=== PATIENT | female | born 1995 | race Caucasian/White ===

== ENCOUNTER → 2018-10-04 | Outpatient (CLI) | payer SELFPAY ==
[2018-10-15 11:43] LABS: HPV HC, High Risk Negative (Negative)
[2018-10-15 11:50] LABS: HPV Reflexed? NOT INDICATED
== END | disposition home or self-care (01) ==
PROVIDERS: Visit Provider Obstetrics & Gynecology
DX: Z12.4 Encounter for screening for malignant neoplasm of cervix (principal)
CPT/HCPCS: 88175; G0145

== ENCOUNTER → 2021-04-28 14:39 | Outpatient (CLI) | payer BC, MEDICAID, SELFPAY ==
[2021-04-28 15:21] LABS: Color, Urine Yellow (Yellow); Glucose, Dipstick Normal (Normal); Ketone-Dipstick 5 mg/dl (Negative); Leukocyte Esterase-Dipstick 25 /ul (Negative); Nitrite-Dipstick Negative (Negative); Occult Blood-Urine Negative /ul (Negative); Protein-Dipstick Negative (Negative); Urine Bilirubin Dipstick Negative (Negative); Urine Clarity Clear (Clear); Urine Urobilinogen Normal (Normal)
[2021-04-28 15:24] LABS: Absolute Lymphocyte Count 1.43 X10^3/uL (0.83-4.51); Absolute Neutrophil Count 5.8 X10^3/uL (2.0-7.7); Basophil# 0.02 X10^3/uL; Basophil% 0.3 % (0-1); Eosinophils% 1.3 % (0-5); Hemoglobin 13.9 g/dL (12.0-15.0); Lymphocyte # 1.43 X10^3/ul (0.83-4.51); Lymphocyte % 18.5 % (19-41); Mean Corp Hgb Conc 34.8 g/dL (32-36); Mean Corpuscular Hgb 29.7 pg (27.0-32.0); Mean Corpuscular Volume 85.5 fL (81-99); Mean Platelet Vol. 10.2 fl (6.2-12.0); Monocyte% 5.2 % (0-10); NRBC Flagged by Analyzer 0 % (0-5); Neutrophil # 5.78 X10^3/uL (2.7-7.7); Neutrophil % 74.4 % (47-70); Platelet Count 223 K/mm3 (150-450); RBC Distribution Width CV 11.8 % (11.6-14.6); RBC Distribution Width SD 36.4 fl (35.1-43.9); Red Blood Count 4.68 M/mm3 (4.2-5.4); White Blood Count 7.8 K/mm3 (4.4-11.0)
[2021-04-28 15:45] LABS: Amphetamine Urine VISTA NEGATIVE (<1000 ng/mL); Barbiturate Urine VISTA NEGATIVE (< 200 ng/mL); Benzodiazepine Urine VISTA NEGATIVE (< 200 ng/mL); Cocaine Urine VISTA NEGATIVE (< 300 ng/mL); Ecstacy Urine VISTA NEGATIVE (< 500 ng/mL); Methadone Urine VISTA NEGATIVE (< 300 ng/mL); PCP Urine VISTA NEGATIVE (< 25 ng/mL); THC Urine VISTA NEGATIVE (< 50 ng/mL); Vista UDS pH Range 5
[2021-04-28 17:51] LABS: Thyroid Stim Hormone (TSH) 4.16 uIU/mL (0.358-3.74)
[2021-04-29 08:44] LABS: HIV - WCH Non-Reactive (Nonreactive); Hepatitis B Surface Antigen Non-Reactive (Nonreactive); Hepatitis C Antibody Non-Reactive (Nonreactive); Rubella IgG Reactive (Nonreactive); Syphilis Antibodies Non-reactive
[2021-05-03 02:07] LABS: Chlamydia By Nucleic Acid AMP Negative (Negative)
[2021-05-03 13:36] LABS: Gonococcus By Nucleic Acid AMP Negative (Negative)
[2021-05-12 11:42] LABS: HPV Reflexed? NOT INDICATED
== END ==
PROVIDERS: Visit Provider Obstetrics & Gynecology
DX: Z34.81 Encounter for supervision of other normal pregnancy, first trimester (principal)
CPT/HCPCS: 36415; 80307; 81002; 84443; 85025; 86703; 86762; 86780; 86803; 87086; 87088; 87340; 87491; 87591; 88175; G0145

== ENCOUNTER 2021-05-28 14:58 | Outpatient (CLI) | payer BC, MEDICAID, SELFPAY ==
[2021-05-28 17:21] LABS: T4 Free Direct 0.85 ng/dL (0.76-1.46); Thyroid Stim Hormone (TSH) 4.06 uIU/mL (0.358-3.74)
[2021-05-31 15:07] LABS: Thyroid Peroxidase AB 96 IU/mL (0-34)
[2021-05-31 16:08] LABS: Thyroglobulin Antibody 2.6 IU/mL (0.0-0.9)
== END 2021-05-28 23:59 | disposition short-term general hospital (02) ==
LOC: WOBLAB 14:59
PROVIDERS: Visit Provider Obstetrics & Gynecology
DX: E03.9 Hypothyroidism, unspecified (principal)
CPT/HCPCS: 36415; 84439; 84443; 86376; 86800

== ENCOUNTER 2021-07-27 15:33 | Outpatient (CLI) | payer BC, MEDICAID, SELFPAY ==
[2021-07-27 16:36] LABS: T4 Free Direct 0.88 ng/dL (0.76-1.46); Thyroid Stim Hormone (TSH) 2.66 uIU/mL (0.358-3.74)
== END 2021-07-27 23:59 | disposition home or self-care (01) ==
PROVIDERS: Visit Provider Obstetrics & Gynecology
DX: Z34.82 Encounter for supervision of other normal pregnancy, second trimester (principal); E06.3 Autoimmune thyroiditis
CPT/HCPCS: 36415; 84439; 84443

== ENCOUNTER 2021-08-31 09:10 | Outpatient (CLI) | payer BC, SELFPAY ==
[2021-08-31 10:55] LABS: Hematocrit 36.2 % (37-47); Hemoglobin 12.5 g/dL (12.0-15.0); Mean Corp Hgb Conc 34.5 g/dL (32-36); Mean Corpuscular Hgb 30.3 pg (27.0-32.0); Mean Corpuscular Volume 87.7 fL (81-99); Mean Platelet Vol. 10.4 fl (6.2-12.0); Platelet Count 157 K/mm3 (150-450); RBC Distribution Width CV 12.6 % (11.6-14.6); RBC Distribution Width SD 40.4 fl (35.1-43.9); Red Blood Count 4.13 M/mm3 (4.2-5.4); White Blood Count 7.1 K/mm3 (4.4-11.0)
[2021-08-31 11:18] LABS: Glucose Challenge Gest 1H 50g 119 mg/dL (70-140); T4 Free Direct 0.89 ng/dL (0.76-1.46); Thyroid Stim Hormone (TSH) 2.22 uIU/mL (0.358-3.74)
== END 2021-08-31 23:59 | disposition home or self-care (01) ==
LOC: WOBLAB 09:10
PROVIDERS: Visit Provider Obstetrics & Gynecology
DX: Z34.82 Encounter for supervision of other normal pregnancy, second trimester (principal)
CPT/HCPCS: 36415; 82950; 84439; 84443; 85027

== ENCOUNTER → 2021-11-12 | Outpatient (CLI) | payer BC, SELFPAY | END | disposition home or self-care (01) | LOC: LABSPEC 12:18 | PROVIDERS: Visit Provider Obstetrics & Gynecology | DX: Z36.85 Encounter for antenatal screening for Streptococcus B (principal) | CPT/HCPCS: 87081 ==

== ENCOUNTER 2021-12-03 03:30 | Inpatient (IN) | payer BC, MEDICAID, SELFPAY ==
[2021-12-03] VITALS (54 sets, daily range): BP systolic 96–133; BP diastolic 55–84; PULSE 59–116; RESP 14–18; TEMP 36.2–36.9; O2SAT 95–100; BMI 26.6
[2021-12-03 03:21] LABS: ROM Internal Control Test YES-OK TO RESULT pt. (Internal QC)
[2021-12-03 03:22] LABS: ROM Patient Test POSITIVE (Negative)
[2021-12-03] MEDS: Lactated Ringers 1,000 ML 50 ML IV (03:30)
[2021-12-03 03:52] LABS: Absolute Lymphocyte Count 1.82 X10^3/uL (0.83-4.51); Absolute Neutrophil Count 6.6 X10^3/uL (2.0-7.7); Basophil# 0.03 X10^3/uL; Basophil% 0.3 % (0-1); Eosinophil# 0.06 X10^3/uL; Eosinophils% 0.7 % (0-5); Hematocrit 37.7 % (37-47); Hemoglobin 12.9 g/dL (12.0-15.0); Lymphocyte # 1.82 X10^3/ul (0.83-4.51); Lymphocyte % 19.8 % (19-41); Mean Corp Hgb Conc 34.2 g/dL (32-36); Mean Corpuscular Hgb 30.1 pg (27.0-32.0); Mean Corpuscular Volume 88.1 fL (81-99); Mean Platelet Vol. 10.6 fl (6.2-12.0); Monocyte# 0.54 X10^3/uL; Monocyte% 5.9 % (0-10); NRBC Flagged by Analyzer 0 % (0-5); Neutrophil # 6.63 X10^3/uL (2.7-7.7); Neutrophil % 72.3 % (47-70); Platelet Count 147 K/mm3 (150-450); RBC Distribution Width CV 12.9 % (11.6-14.6); Red Blood Count 4.28 M/mm3 (4.2-5.4); White Blood Count 9.2 K/mm3 (4.4-11.0)
--- NOTE | 2021-12-03 03:56 | PCM.HP.BLA ---
History and Physical Date of Admission: 12/03/21 Chief complaint: Leakage of fluid History present illness: 26-year-old at 39 weeks and 3 days with [facility]I: 12/07/2021 arrives with leakage of clear fluid. Denies headache, visual changes, chest pain, shortness of breath, nausea vomit, right upper quadrant pain. Patient states good movement. Obstetrical history: G1: 39-week male 08/2019 G2: SAB G3: Current Medications: Synthroid 50 mcg daily Past medical history: Hypothyroid Past surgical history: ACL Allergies: No known drug allergies Social history: Denies smoking, alcohol use, drug use Family history: Denies history of DVT or PE Review of systems: Besides above pertinent positives a full review of systems was performed and found to be negative Physical exam: Blood pressure 111/74 pulse 88 SPO2 98% General: Normal-appearing no acute distress HEENT: Normocephalic/atraumatic no cervical lymphadenopathy Cardiac/respiratory: No successor muscles, nonlabored breathing Abdomen: Soft, nontender, gravid Extremities: No peripheral edema normal peripheral pulses Psych: Normal affect normal demeanor nonpressured speech Labs: White blood cell count 9.2 hemoglobin 12.9 hematocrit 37.7% platelets 147. ROM positive Assessment plan: 26-year-old at 39 weeks and 3 days with SROM Admit labor and delivery CEFM GBS negative Routine orders Anesthesia to see
[2021-12-03] MEDS: LACTATED RINGERS 500 ML 999 ML IV (04:15)
[2021-12-03] MEDS: fentaNYL-bupivacaine (epidural) 100 ML BAG EPIDURAL (04:40)
[2021-12-03 04:42] LABS: HIV - WCH Non-Reactive (Nonreactive)
--- NOTE | 2021-12-03 04:58 | PCM.PN.OB ---
Subjective Subjective Patient now comfortable with epidural Objective Data Objective Data Vital Signs: Vital Signs Pulse BP Pulse Ox 79 131/77 H 99 12/03/21 04:57 12/03/21 04:57 12/03/21 04:56 Weight: 170 lb Body Mass Index (BMI) 26.6 Intake & Output: Intake and Output for Last 24 Hours 12/01/21 12/02/21 12/03/21 23:59 23:59 23:59 Intake Total 59.17 / 59.17 Balance 59.17 / 59.17 Lab / Micro Data Result Diagrams: 12/03/21 03:30 Labs: Laboratory Results - last 24 hr 12/03/21 02:55: Vag Amniotic Fld Detect POSITIVE H 12/03/21 03:30: WBC 9.2, RBC 4.28, Hgb 12.9, Hct 37.7, MCV 88.1, MCH 30.1, MCHC 34.2, RDW Std Deviation 41.0, RDW Coeff of Fran 12.9, Plt Count 147 L, MPV 10.6, Immature Gran % (Auto) 1.000 H, Neut % (Auto) 72.3 H, Lymph % (Auto) 19.8, [place] % (Auto) 5.9, Eos % (Auto) 0.7, Baso % (Auto) 0.3, Absolute Neuts (auto) 6.6, Absolute Lymphs (auto) 1.82, Nucleated RBC % 0 12/03/21 03:30: Blood Type A POSITIVE, Antibody Screen NEGATIVE 12/03/21 03:30: HIV 1&2 Antibody Non-Reactive Micro: Microbiology 12/03/21 03:30 Nasal Secretion SARS-CoV-2 Antigen (Rapid) - Final Physical Exam Const alert, oriented x3, no apparent distress, average body habitus, healthy appearing and well nourished HEENT normocephalic and moist oral mucous membranes Eyes PERRL Neck full ROM Resp normal respiratory effort, no retractions and no use of accessory muscles GI GI Narrative: Soft, nontender, gravid Narrative: Cervical exam: 3-4/70/-2. For bag noted, rupture of 4 bag clear fluid Extremity normal to inspection, full ROM and no clubbing, cyanosis or edema Neuro moves all extremities Psych mental status grossly normal, affect normal, speech normal and activity/motor behavior normal Assessment & Plan (1) : PLAN: Patient seen and examined. Now comfortable with epidural. SROM. But had for bag, rupture for bag. Continue current management
[2021-12-03] MEDS: Ondansetron 4 MG/2 ML Vial IV (05:59)
[2021-12-03] MEDS: 0.9% Saline Lock 10 ML Syringe IV ×2 (05:59→11:11)
[2021-12-03] MEDS: Oxytocin 30 units/NS 500 ml 30 UNITS/500 ML IV.SOLN 334 UNITS IV (08:04)
[2021-12-03] MEDS: Methylergonovine 0.2 MG/ML Ampul IM (08:08)
--- NOTE | 2021-12-03 08:08 | EX.PCM.OBRPT ---
Vaginal Delivery Findings Description of Procedure: Painless vaginal delivery of a viable female , vertex JJ. Head and shoulders delivered with ease. Cord cut clamped. Baby handed off to patient. Placenta delivered via cord traction and fundal massage. No lacerations noted. EBL 250 cc Apgars 8/9. Prophylactic Methergine for quick and second stage given IM.
[2021-12-03] MEDS: Levothyroxine 50 MCG Tablet PO (09:22)
[2021-12-03] MEDS: Prenatal Vits Tablet 1 TABLET PO (11:23)
[2021-12-03] MEDS: Ibuprofen 600 MG Tablet PO (16:16)
[2021-12-03] MEDS: Acetaminophen 500 MG Tablet 1000 MG PO (21:28)
[2021-12-04] MEDS: Ibuprofen 600 MG Tablet PO ×2 (00:43→08:49)
[2021-12-04 00:49] VITALS: BP 101/69; PULSE 78; RESP 18; TEMP 36.3
[2021-12-04 03:32] VITALS: BP 107/63; PULSE 70; RESP 18; TEMP 36.3; O2SAT 98
[2021-12-04] MEDS: Levothyroxine 50 MCG Tablet PO (06:12)
--- NOTE | 2021-12-04 07:15 | NURSING ---
report given to Gaby Lopez RN who is assuming care of pt at this time
[2021-12-04 07:56] VITALS: BP 114/69; PULSE 75; RESP 16; TEMP 36.6
--- NOTE | 2021-12-04 11:12 | DCINST_ITS ---
Discharge Instructions Diet Discharge Diet: No restrictions Activity Discharge Activity: Return to Normal Activity, May Drive and May Shower May resume sexual activity in: 4-6 weeks Weight Bearing Status: Weight bearing as tolerated Dressing / Incision Call your doctor if your incision/area has: Continuous Slow Oozing and Foul Smelling Discharge Call your doctor if you observe: Fever of 101 or Higher, Shortness of breath and Chest pain Follow Up Care Please Follow Up With: Steven Ovalle MD When: Follow-up 4 to 6 weeks Test Results: Test results from this visit will be discussed in further detail at your follow- up appointment, if applicable. Discharge Plan Admission Admit Date/Time: 12/03/21 03:30 Attending Provider: Steven Ovalle Discharge Orders/Prescriptions Prescriptions: No Action 1 mg Tablet 1 tab PO DAILY levothyroxine 50 mcg Capsule 50 mcg PO DAILY Disposition Discharge Orders: Discharge Patient (Routine); Ordered 12/04/21 Ordered By: Dr. Steven Ovalle
--- NOTE | 2021-12-04 11:12 | PCM.PN.OB ---
Subjective Subjective No overnight complaints Objective Data Objective Data Vital Signs: Vital Signs Temp Pulse Resp BP Pulse Ox O2 Del Method 97.8 F 75 16 114/69 98 Room Air 12/04/21 07:56 12/04/21 07:56 12/04/21 07:56 12/04/21 07:56 12/04/21 03:32 12/04/21 07:56 Oxygen Delivery Method Room Air Weight: 170 lb Body Mass Index (BMI) 26.6 Intake & Output: Intake and Output for Last 24 Hours 12/02/21 12/03/21 12/04/21 23:59 23:59 23:59 Intake Total 1725.84 / 1725.84 Output Total 1500 / 1500 Balance 225.84 / 225.84 Lab / Micro Data Result Diagrams: 12/03/21 03:30 Micro: Microbiology 12/03/21 03:30 Nasal Secretion SARS-CoV-2 Antigen (Rapid) - Final Physical Exam Const alert, oriented x3, no apparent distress, average body habitus, healthy appearing and well nourished HEENT normocephalic Eyes PERRL Neck full ROM Resp normal respiratory effort, no retractions and no use of accessory muscles GI GI Narrative: Soft, nontender, uterus firm and below umbilicus Extremity normal to inspection, full ROM and no clubbing, cyanosis or edema Neuro moves all extremities and no focal motor deficits Psych mental status grossly normal, affect normal, speech normal and activity/motor behavior normal Assessment & Plan (1) : PLAN: day 1. Formula feeding. Pain well controlled. Okay to discharge home today if okay with digital computer systems analyst
--- NOTE | 2021-12-04 11:48 | NURSING ---
Patient to call office on Monday to schedule PP visit.
[2021-12-04 12:04] VITALS: BP 111/70; PULSE 93; RESP 18; TEMP 36.1
== END 2021-12-04 12:20 | disposition home or self-care (01) | DRG 807 ==
LOC: WPOUT 03:34 → WP 03:34
PROVIDERS: Admitting Provider Obstetrics & Gynecology; Visit Provider Obstetrics & Gynecology
DX: O99.284 Endocrine, nutritional and metabolic diseases complicating childbirth (principal); Z37.0 Single live birth; E03.9 Hypothyroidism, unspecified; Z20.822 Contact with and (suspected) exposure to COVID-19; Z3A.39 39 weeks gestation of pregnancy; Z79.890 Hormone replacement therapy
CPT/HCPCS: 59025; 59050; 84112; 85025; 86703; 86850; 86900; 86901; 87426; 99218; J7120; A4216; G0378; J2405